=== PATIENT | male | born 1990 | race Two or more races ===

== ENCOUNTER → 2024-11-27 18:52 | Outpatient (BNV) | payer OTHER, SELFPAY | PROVIDERS: Visit Provider Radiology Diagnostic Radiology | DX: S83.231A Complex tear of medial meniscus, current injury, right knee, initial encounter (principal); S83.241A Other tear of medial meniscus, current injury, right knee, initial encounter; M25.461 Effusion, right knee | CPT/HCPCS: 73721 ==